=== PATIENT | female | born 1950 | race Two or more races ===

== ENCOUNTER → 2018-04-04 | Outpatient (CLI) | payer MEDICARE ==
[~2018-04-04] MED LIST: AMLO10TA2 PO; ATOR20TA9 PO; ESTR1PAT25 TP; INSU300I SC; LISI1TAB7 PO; NEBI5TAB2 PO; OMEP-110 PO; POTA10TA31 PO; PREG75CA PO
[2018-04-04 11:25] LABS: BASOPHILS # (AUTO) 0.02 x10^3/uL (0-0.1); BASOPHILS % (AUTO) 0 % (0-1); EOSINOPHILS # (AUTO) 0.08 x10^3/uL (0-0.4); EOSINOPHILS % (AUTO) 1 % (1-7); LYMPHOCYTES # (AUTO) 2.09 x10^3/uL (1-3.4); LYMPHOCYTES % (AUTO) 30 % (22-44); MD NO; MEAN CORPUSCULAR HEMOGLOBIN 31.9 pg (27.0-34.8); MEAN CORPUSCULAR HGB CONC 34.8 g/dL (32.4-35.8); MEAN CORPUSCULAR VOLUME 91.6 fL (80-100); MEAN PLATELET VOLUME 9.9 fL (7.4-10.4); MONOCYTES # (AUTO) 0.32 x10^3/uL (0.2-0.8); MONOCYTES % (AUTO) 5 % (2-9); NEUTROPHILS # (AUTO) 4.58 x10^3/uL (1.8-6.8); NEUTROPHILS % (AUTO) 65 % (42-75); PLATELET COUNT 248 x10^3/uL (130-400); RED CELL DISTRIBUTION WIDTH 11.8 % (9.6-15.2)
[2018-04-04 11:29] LABS: INTERNATIONAL NORMALIZED RATIO 1.02 (0.93-1.1); PROTHROMBIN TIME 10.5 Seconds (9.6-11.5)
[2018-04-04 11:32] LABS: ALBUMIN 3.8 g/dL (3.4-5.0); ANION GAP 8 mmol/L (5-15); CALCIUM 9.3 mg/dL (8.5-10.1); CHLORIDE 107 mmol/L (98-107)
[2018-04-04 11:38] LABS: ALANINE AMINOTRANSFERASE 21 U/L (12-78); ALKALINE PHOSPHATASE 160 U/L (45-117); BILIRUBIN,TOTAL 0.4 mg/dL (0.2-1.0); CREATININE 0.77 mg/dL (0.55-1.02); TOTAL PROTEIN 8.1 g/dL (6.4-8.2)
== END | disposition home or self-care (01) ==
LOC: STAR 09:58
PROVIDERS: ATTEND Neurological Surgery
DX: Z01.818 Encounter for other preprocedural examination (principal); M48.062 Spinal stenosis, lumbar region with neurogenic claudication
CPT/HCPCS: 36415; 71046; 80053; 85025; 85610; 85730; 93005

== ENCOUNTER 2018-06-07 03:04 | Inpatient (IN) | payer MEDICARE ==
[~2018-06-07] VITALS: Ht 152.4 cm; Wt 74.1 kg
[~2018-06-07 03:04] MED LIST changes: -AMLO10TA2 PO; +AMLO10TA6 PO; +HYDR-3240 PO; -NEBI5TAB2 PO; +NEBI5TAB3 PO; +TIZA4TAB9 PO
[2018-06-07] MEDS ORDERED: CLINDAMYCIN PMX 600MG/50ML 50 ML ONE (03:56)
[2018-06-07] MEDS ORDERED: CLINDAMYCIN PMX 600MG/50ML 50 ML IV ONE (04:00)
[2018-06-07] MEDS ORDERED: DOCUSATE 100 MG CAPSULE PO PRN (05:30)
[2018-06-07] MEDS ORDERED: DEXTROSE 4 GM TAB.CHEW PO PRN (05:30)
[2018-06-07] MEDS ORDERED: ACETAMINOPHEN 325 MG TABLET PO PRN ×2 (05:30→09:30)
[2018-06-07] MEDS ORDERED: DEXTROSE 50%, 50ML SYRINGE IVPush PRN (05:30)
[2018-06-07] MEDS ORDERED: ONDANSETRON 2MG/ML, 2ML IVPush PRN (05:30)
[2018-06-07] MEDS ORDERED: BACLOFEN 10 MG TABLET PO PRN (05:30)
[2018-06-07] MEDS ORDERED: ENALAPRILAT 1.25 MG/ML, 2ML IVPush PRN (05:30)
[2018-06-07] MEDS ORDERED: TEMAZEPAM 15 MG CAPSULE PO PRN (05:30)
[2018-06-07] MEDS ORDERED: morphine SULFATE 10 MG/ML, 1ML IVPush PRN (05:30)
[2018-06-07] MEDS ORDERED: ONDANSETRON ODT 4 MG PO PRN (05:30)
[2018-06-07] MEDS ORDERED: GLUCAGON 1 MG IM PRN (05:30)
[2018-06-07] MEDS ORDERED: LABETALOL 5MG/ML, 20ML IVPush PRN (05:30)
[2018-06-07 05:43] VITALS: BP 122/75
[2018-06-07] MEDS: INSULIN LISPRO 100 UNITS/ML, PEN SQ-INSULIN SCH ×4 (06:32→20:45)
[2018-06-07 06:43] VITALS: BP 117/76
[2018-06-07] MEDS ORDERED: BUPIVACAINE/PF-EPI 0.5% 1:200K ONE (07:31)
[2018-06-07] MEDS ORDERED: VANCOMYCIN 1,000 MG ONE (07:32)
[2018-06-07] MEDS ORDERED: BACITRACIN 50,000 UNIT ONE (07:32)
[2018-06-07] MEDS ORDERED: THROMBIN 5,000 UNIT VIAL TP ONE ×2 (07:32→08:51)
[2018-06-07] MEDS ORDERED: VANCOMYCIN 500 MG ONE (07:32)
[2018-06-07 08:16] LABS: BASOPHILS # (AUTO) 0.02 x10^3/uL (0-0.1); BASOPHILS % (AUTO) 0 % (0-1); EOSINOPHILS # (AUTO) 0.15 x10^3/uL (0-0.4); EOSINOPHILS % (AUTO) 2 % (1-7); LYMPHOCYTES # (AUTO) 2.83 x10^3/uL (1-3.4); LYMPHOCYTES % (AUTO) 36 % (22-44); MD NO; MEAN CORPUSCULAR HEMOGLOBIN 30.7 pg (27.0-34.8); MEAN CORPUSCULAR HGB CONC 33.6 g/dL (32.4-35.8); MEAN CORPUSCULAR VOLUME 91.3 fL (80-100); MEAN PLATELET VOLUME 9.3 fL (7.4-10.4); MONOCYTES # (AUTO) 0.49 x10^3/uL (0.2-0.8); MONOCYTES % (AUTO) 6 % (2-9); NEUTROPHILS # (AUTO) 4.45 x10^3/uL (1.8-6.8); NEUTROPHILS % (AUTO) 56 % (42-75); PLATELET COUNT 270 x10^3/uL (130-400); RED BLOOD COUNT 4.41 x10^6/uL (3.82-5.3); RED CELL DISTRIBUTION WIDTH 12.6 % (9.6-15.2)
[2018-06-07 08:29] LABS: ALANINE AMINOTRANSFERASE 21 U/L (12-78); ALBUMIN 3.7 g/dL (3.4-5.0); ANION GAP 7 mmol/L (5-15); CALCIUM 9.1 mg/dL (8.5-10.1); CHLORIDE 105 mmol/L (98-107); CREATININE 0.79 mg/dL (0.55-1.02)
[2018-06-07 08:31] LABS: ALKALINE PHOSPHATASE 141 U/L (45-117); BILIRUBIN,TOTAL 0.4 mg/dL (0.2-1.0); TOTAL PROTEIN 7.6 g/dL (6.4-8.2)
[2018-06-07] MEDS ORDERED: FENTANYL PF 250 MCG/5ML ONE (08:44)
[2018-06-07] MEDS ORDERED: BACITRACIN 50,000 UNIT IM ONE (08:51)
[2018-06-07] MEDS ORDERED: ONDANSETRON 2MG/ML, 2ML ONE (08:52)
[2018-06-07] MEDS ORDERED: ROCURONIUM 10MG/ML,5ML ONE (08:52)
[2018-06-07] MEDS ORDERED: PROPOFOL 10 MG/ML, 20ML ONE (08:52)
[2018-06-07] MEDS ORDERED: DEXAMETHASONE 4 MG/ML, 1ML ONE (08:52)
[2018-06-07] MEDS ORDERED: SUCCINYLCHOLINE 20 MG/ML, 10ML ONE (08:52)
[2018-06-07] MEDS: OMEPRAZOLE 20 MG CAPSULE.DR PO SCH (09:00)
[2018-06-07] MEDS: PREGABALIN 75 MG CAPSULE PO SCH ×2 (09:00→20:44)
[2018-06-07] MEDS: NEBIVOLOL HCL 5 MG TABLET PO SCH (09:00)
[2018-06-07] MEDS: AMLODIPINE 10 MG TAB PO SCH (09:00)
[2018-06-07] MEDS: LISINOPRIL 20 MG TABLET PO SCH (09:00)
[2018-06-07] MEDS ORDERED: INSULIN GLARGINE 100 UNITS/ML, PEN SQ-INSULIN SCH (09:00)
[2018-06-07] MEDS: SODIUM CHLORIDE FLUSH 10ML SYR IVF SCH ×2 (09:00→20:06)
[2018-06-07] MEDS ORDERED: DIPHENHYDRAMINE 50 MG/ML, 1ML IVPush PRN (09:30)
[2018-06-07] MEDS ORDERED: MORPHINE SULFATE 4 MG/ML, 1ML IVPush PRN (09:30)
[2018-06-07] MEDS ORDERED: PROMETHAZINE 25 MG/ML, 1ML IV PRN (09:30)
[2018-06-07] MEDS ORDERED: ONDANSETRON ODT 8 MG PO PRN (09:30)
[2018-06-07] MEDS ORDERED: OXYcodone 5 MG/5 ML ORAL.SOL UDC PO PRN (09:30)
[2018-06-07] MEDS ORDERED: MIDAZOLAM 1 MG/ML, 2ML IV PRN (09:30)
[2018-06-07] MEDS ORDERED: EPHEDRINE 50 MG/ML, 1ML IVPush PRN (09:30)
[2018-06-07] MEDS ORDERED: PROMETHAZINE 12.5 MG SUPP PR PRN (09:30)
[2018-06-07] MEDS ORDERED: PROMETHAZINE 25 MG SUPP PR PRN (09:30)
[2018-06-07] MEDS ORDERED: FENTANYL PF 100 MCG/2ML IV PRN (09:30)
[2018-06-07] MEDS ORDERED: EPHEDRINE 50 MG/ML, 1ML IM PRN (09:30)
[2018-06-07] MEDS ORDERED: OXYcodone 5 MG/5 ML ORAL.SOL UDC ONE (09:42)
[2018-06-07] MEDS ORDERED: OXYcodone/APAP 5/325MG TABLET PO PRN (11:30)
[2018-06-07] MEDS ORDERED: VANCOMYCIN PER PHARMACY MC PRN (11:30)
[2018-06-07] MEDS ORDERED: PHARMACOKINETIC MONITORING MC PRN (11:30)
[2018-06-07] MEDS ORDERED: PHARMACOKINETIC CONSULTATION MC ONE (11:30)
[2018-06-07] MEDS: SODIUM CHLORIDE 0.9% 1,000 ML IV SCH (12:11)
[2018-06-07] MEDS: SENNA/DOCUSATE TABLET PO SCH (12:12)
[2018-06-07] MEDS: CLINDAMYCIN PMX 900MG/50ML 50 ML IV SCH ×2 (12:12→20:06)
[2018-06-07] MEDS ORDERED: TOUJEO SQ-INSULIN SCH ×2 (12:51→13:00)
[2018-06-07] MEDS: HYDROcodone/APAP 5/325 TABLET PO PRN (13:02)
[2018-06-07] MEDS: VANCOMYCIN 1,500 MG in SODIUM CHLORIDE 0.9% 250 ML IV SCH (13:26)
[2018-06-07 13:39] VITALS: BP 118/57
[2018-06-07 18:59] VITALS: BP 112/67
[2018-06-07] MEDS: ATORVASTATIN 40 MG TABLET PO SCH (20:44)
[2018-06-08 01:19] VITALS: BP 102/62
[2018-06-08] MEDS: CLINDAMYCIN PMX 900MG/50ML 50 ML IV SCH ×2 (04:11→11:21)
[2018-06-08 05:02] LABS: BASOPHILS # (AUTO) 0.02 x10^3/uL (0-0.1); BASOPHILS % (AUTO) 0 % (0-1); EOSINOPHILS % (AUTO) 0 % (1-7); LYMPHOCYTES # (AUTO) 1.26 x10^3/uL (1-3.4); LYMPHOCYTES % (AUTO) 15 % (22-44); MD NO; MEAN CORPUSCULAR HEMOGLOBIN 31.3 pg (27.0-34.8); MEAN CORPUSCULAR HGB CONC 33.5 g/dL (32.4-35.8); MEAN CORPUSCULAR VOLUME 93.3 fL (80-100); MEAN PLATELET VOLUME 9.8 fL (7.4-10.4); MONOCYTES # (AUTO) 0.48 x10^3/uL (0.2-0.8); MONOCYTES % (AUTO) 6 % (2-9); NEUTROPHILS # (AUTO) 6.95 x10^3/uL (1.8-6.8); NEUTROPHILS % (AUTO) 80 % (42-75); PLATELET COUNT 250 x10^3/uL (130-400); RED BLOOD COUNT 3.86 x10^6/uL (3.82-5.3); RED CELL DISTRIBUTION WIDTH 12.8 % (9.6-15.2)
[2018-06-08 05:03] LABS: HCT (SEDRATE) 35.6 % (34.6-47.8)
[2018-06-08 05:15] LABS: CALCIUM 8.4 mg/dL (8.5-10.1); CHLORIDE 105 mmol/L (98-107)
[2018-06-08 05:29] LABS: ALANINE AMINOTRANSFERASE 16 U/L (12-78); ALBUMIN 2.9 g/dL (3.4-5.0); ALKALINE PHOSPHATASE 116 U/L (45-117); ANION GAP 8 mmol/L (5-15); BILIRUBIN,TOTAL 0.3 mg/dL (0.2-1.0); C-REACTIVE PROTEIN, QUANT 0.43 mg/dL (0.02-0.49); CREATININE 1.06 mg/dL (0.55-1.02); THYROID STIMULATING HORMONE 0.847 mIU/L (0.358-3.740); TOTAL PROTEIN 6.3 g/dL (6.4-8.2)
[2018-06-08 05:55] LABS: HEMOGLOBIN A1C 7.8 % (4.2-6.3)
[2018-06-08 07:53] VITALS: BP 125/67
[2018-06-08] MEDS: HYDROcodone/APAP 5/325 TABLET PO PRN (07:58)
[2018-06-08] MEDS: OMEPRAZOLE 20 MG CAPSULE.DR PO SCH (07:58)
[2018-06-08] MEDS: SENNA/DOCUSATE TABLET PO SCH (07:58)
[2018-06-08] MEDS: LISINOPRIL 20 MG TABLET PO SCH (07:58)
[2018-06-08] MEDS: PREGABALIN 75 MG CAPSULE PO SCH ×2 (07:58→20:46)
[2018-06-08] MEDS: AMLODIPINE 10 MG TAB PO SCH (07:58)
[2018-06-08] MEDS: NEBIVOLOL HCL 5 MG TABLET PO SCH (07:59)
[2018-06-08] MEDS: SODIUM CHLORIDE 0.9% 1,000 ML IV SCH ×3 (08:02→16:22)
[2018-06-08] MEDS: INSULIN LISPRO 100 UNITS/ML, PEN SQ-INSULIN SCH ×4 (08:02→20:47)
[2018-06-08] MEDS: SODIUM CHLORIDE FLUSH 10ML SYR IVF SCH ×2 (08:03→20:48)
[2018-06-08] MEDS ORDERED: INSULIN GLARGINE 100 UNITS/ML, PEN SQ-INSULIN SCH (09:00)
[2018-06-08] MEDS: VANCOMYCIN 1,500 MG in SODIUM CHLORIDE 0.9% 250 ML IV SCH (12:16)
[2018-06-08 12:34] VITALS: BP 106/51
[2018-06-08 20:12] VITALS: BP 144/72
[2018-06-08] MEDS: ATORVASTATIN 40 MG TABLET PO SCH (20:46)
[2018-06-09 00:18] VITALS: BP 106/67
[2018-06-09 05:47] LABS: BASOPHILS # (AUTO) 0.04 x10^3/uL (0-0.1); BASOPHILS % (AUTO) 1 % (0-1); EOSINOPHILS # (AUTO) 0.08 x10^3/uL (0-0.4); EOSINOPHILS % (AUTO) 1 % (1-7); LYMPHOCYTES # (AUTO) 2.79 x10^3/uL (1-3.4); LYMPHOCYTES % (AUTO) 35 % (22-44); MD NO; MEAN CORPUSCULAR HEMOGLOBIN 31.6 pg (27.0-34.8); MEAN PLATELET VOLUME 10.6 fL (7.4-10.4); MONOCYTES # (AUTO) 0.45 x10^3/uL (0.2-0.8); MONOCYTES % (AUTO) 6 % (2-9); NEUTROPHILS # (AUTO) 4.56 x10^3/uL (1.8-6.8); NEUTROPHILS % (AUTO) 58 % (42-75); PLATELET COUNT 231 x10^3/uL (130-400); RED BLOOD COUNT 3.77 x10^6/uL (3.82-5.3); RED CELL DISTRIBUTION WIDTH 12.7 % (9.6-15.2)
[2018-06-09 06:03] LABS: ANION GAP 8 mmol/L (5-15); CALCIUM 8.7 mg/dL (8.5-10.1); CHLORIDE 108 mmol/L (98-107)
[2018-06-09 06:06] LABS: CREATININE 0.88 mg/dL (0.55-1.02)
[2018-06-09] MEDS: INSULIN LISPRO 100 UNITS/ML, PEN SQ-INSULIN SCH ×2 (07:31→11:36)
[2018-06-09] MEDS: AMLODIPINE 10 MG TAB PO SCH (07:31)
[2018-06-09] MEDS: LISINOPRIL 20 MG TABLET PO SCH (07:31)
[2018-06-09] MEDS: PREGABALIN 75 MG CAPSULE PO SCH (07:31)
[2018-06-09] MEDS: OMEPRAZOLE 20 MG CAPSULE.DR PO SCH (07:31)
[2018-06-09] MEDS: SENNA/DOCUSATE TABLET PO SCH (07:31)
[2018-06-09] MEDS: NEBIVOLOL HCL 5 MG TABLET PO SCH (07:32)
[2018-06-09] MEDS: SODIUM CHLORIDE FLUSH 10ML SYR IVF SCH (07:32)
[2018-06-09 07:41] VITALS: BP 107/62
[2018-06-09] MEDS ORDERED: INSULIN GLARGINE SQ-INSULIN SCH ×3 (09:00→21:00)
[2018-06-09] MEDS ORDERED: TOUJEO SQ-INSULIN SCH (09:00)
[2018-06-09] MEDS: VANCOMYCIN 1,500 MG in SODIUM CHLORIDE 0.9% 250 ML IV SCH (11:36)
[2018-06-09 13:09] VITALS: BP 123/74
[2018-06-09] MEDS: HYDROcodone/APAP 5/325 TABLET PO PRN (14:52)
[2018-06-09] MEDS ORDERED: [UNRECOGNIZED DRUG - OTHER] SQ-INSULIN SCH ×2 (21:00)
== END 2018-06-09 16:40 | disposition home or self-care (01) | DRG 902 ==
LOC: ED 03:25 → EDIP 05:07 → 4NOR 05:20 → DCLOUNGE 06-09 16:23
PROVIDERS: ADMIT Internal Medicine; ATTEND Internal Medicine
PROC: 0JB70ZZ Excision of Back Subcutaneous Tissue and Fascia, Open Approach (ICD-10-PCS; principal; 2018-06-07 08:30)
DX: L76.34 Postprocedural seroma of skin and subcutaneous tissue following other procedure (principal); L02.212 Cutaneous abscess of back [any part, except buttock and flank]; T81.30XA Disruption of wound, unspecified, initial encounter; Y83.8 Other surgical procedures as the cause of abnormal reaction of the patient, or of later complication, without mention of misadventure at the time of the procedure; E11.65 Type 2 diabetes mellitus with hyperglycemia; Y83.2 Surgical operation with anastomosis, bypass or graft as the cause of abnormal reaction of the patient, or of later complication, without mention of misadventure at the time of the procedure; K21.9 Gastro-esophageal reflux disease without esophagitis; E78.5 Hyperlipidemia, unspecified; I10 Essential (primary) hypertension; M54.30 Sciatica, unspecified side; Z79.4 Long term (current) use of insulin; Z90.710 Acquired absence of both cervix and uterus; Y92.89 Other specified places as the place of occurrence of the external cause; Z88.8 Allergy status to other drugs, medicaments and biological substances
CPT/HCPCS: 36415; 80048; 80053; 82962; 83036; 84145; 84443; 85025; 85651; 86140; 87040; 87070; 87075; 87205; 93005; 96365; G0378; J1100; J2405; J2704; J3010; J3370; Q0162; J0330; J1815; J7030; J7050